=== PATIENT | female | born 1995 | race Caucasian/White ===

== ENCOUNTER → 2018-03-06 | Outpatient (CLI) | payer BC | END | disposition home or self-care (01) | LOC: RAD 12:45 | PROVIDERS: ATTEND Orthopaedic Surgery | DX: S92.011A Displaced fracture of body of right calcaneus, initial encounter for closed fracture (principal); S82.831A Other fracture of upper and lower end of right fibula, initial encounter for closed fracture; S92.211A Displaced fracture of cuboid bone of right foot, initial encounter for closed fracture; S92.251A Displaced fracture of navicular [scaphoid] of right foot, initial encounter for closed fracture; X58.XXXA Exposure to other specified factors, initial encounter; Y93.89 Activity, other specified; Y92.89 Other specified places as the place of occurrence of the external cause; Y99.8 Other external cause status ==

== ENCOUNTER 2019-01-09 11:35 | Day surgery (SDC) | payer BC ==
[~2019-01-09] VITALS: Ht 177.8 cm; Wt 76.6 kg
[~2019-01-09 11:35] MED LIST: ACET650S21 PO
[2019-01-09] MEDS ORDERED: PROPOFOL 50 ML ONE ×2 (12:06→13:32)
[2019-01-09] MEDS ORDERED: FENTANYL PF 250 MCG/5ML ONE (12:06)
[2019-01-09] MEDS ORDERED: MIDAZOLAM 1 MG/ML, 2ML ONE (12:06)
[2019-01-09] MEDS ORDERED: BUPIVACAINE/PF 0.5% ONE (12:09)
[2019-01-09 12:11] VITALS: BP 105/71
[2019-01-09] MEDS ORDERED: LACTATED RINGERS 1,000 ML IV SCH (12:14)
[2019-01-09] MEDS ORDERED: DIAZEPAM 5 MG TABLET PO ONE (12:30)
[2019-01-09] MEDS ORDERED: ACETAMINOPHEN 500 MG TABLET PO ONE (12:30)
[2019-01-09] MEDS ORDERED: GABAPENTIN 300 MG CAPSULE PO ONE (12:30)
[2019-01-09] MEDS ORDERED: TOBRAMYCIN SULFATE 1.2 GM IMP ONE ×2 (12:33→13:25)
[2019-01-09 12:36] LABS: HCG UR SG 1.011 (1.003-1.030)
[2019-01-09] MEDS ORDERED: VANCOMYCIN 1,000 MG ONE (13:25)
[2019-01-09] MEDS ORDERED: PROMETHAZINE 25 MG/ML, 1ML IV PRN (13:30)
[2019-01-09] MEDS ORDERED: OXYcodone 5 MG/5 ML ORAL.SOL UDC PO PRN (13:30)
[2019-01-09] MEDS ORDERED: HYDROmorphone 2 MG/ML, 1ML IVPush PRN (13:30)
[2019-01-09] MEDS ORDERED: MIDAZOLAM 1 MG/ML, 2ML IV PRN (13:30)
[2019-01-09] MEDS ORDERED: MEPERIDINE/PF 25MG/0.5ML IVPush PRN (13:30)
[2019-01-09] MEDS ORDERED: DIAZEPAM 5 MG/ML, 2ML IVPush PRN (13:30)
[2019-01-09] MEDS ORDERED: SCOPOLAMINE PATCH, 1.5MG PATCH.TD72 TD PRN (13:30)
[2019-01-09] MEDS ORDERED: ONDANSETRON 2MG/ML, 2ML IV PRN (13:30)
[2019-01-09] MEDS ORDERED: FENTANYL PF 100 MCG/2ML IV PRN (13:30)
[2019-01-09] MEDS ORDERED: CEFAZOLIN 1,000 MG ONE (15:48)
[2019-01-09] MEDS ORDERED: ONDANSETRON 2MG/ML, 2ML ONE (15:48)
[2019-01-09] MEDS ORDERED: DEXAMETHASONE 4 MG/ML, 1ML ONE (15:48)
== END 2019-01-09 16:00 | disposition home or self-care (01) ==
LOC: OUT 11:35
PROVIDERS: ATTEND Orthopaedic Surgery
DX: M86.8X6 Other osteomyelitis, lower leg (principal); M20.5X1 Other deformities of toe(s) (acquired), right foot; J45.909 Unspecified asthma, uncomplicated; Z87.891 Personal history of nicotine dependence
CPT/HCPCS: 27640; 28010; 28120; 64445; 64447; 81025; 87070; 87075; 87205; 88305; 88311; C1713; J0690; J1100; J2250; J2405; J2704; J3010; J3260; J3370; J3490

== ENCOUNTER 2019-02-22 13:26 | Observation (INO) | payer BC ==
[~2019-02-22] VITALS: Ht 177.8 cm; Wt 83.0 kg
[~2019-02-22 13:26] MED LIST changes: +None per pt
[2019-02-22] MEDS ORDERED: LACTATED RINGERS 1,000 ML IV SCH (13:54)
[2019-02-22 14:10] LABS: HCG UR SG 1.003 (1.003-1.030)
[2019-02-22] MEDS ORDERED: MIDAZOLAM 1 MG/ML, 2ML ONE (14:18)
[2019-02-22] MEDS ORDERED: FENTANYL PF 250 MCG/5ML ONE (14:18)
[2019-02-22] MEDS ORDERED: PROPOFOL 10 MG/ML, 20ML ONE (14:19)
[2019-02-22] MEDS ORDERED: LIDOCAINE-MPF 2% ,5ML ONE (14:19)
[2019-02-22 14:20] VITALS: BP 106/72
[2019-02-22] MEDS ORDERED: WATER-INJECTION,STERILE 10 ML IV ONE (14:20)
[2019-02-22] MEDS ORDERED: CEFAZOLIN 1,000 MG ONE ×2 (14:20)
[2019-02-22] MEDS ORDERED: ONDANSETRON 2MG/ML, 2ML ONE ×2 (14:24)
[2019-02-22] MEDS ORDERED: DEXAMETHASONE 4 MG/ML, 1ML ONE ×2 (14:24)
[2019-02-22] MEDS ORDERED: GABAPENTIN 300 MG CAPSULE PO ONE (14:30)
[2019-02-22] MEDS ORDERED: ACETAMINOPHEN 500 MG TABLET PO ONE (14:30)
[2019-02-22] MEDS ORDERED: SCOPOLAMINE PATCH, 1.5MG PATCH.TD72 TD ONE (14:30)
[2019-02-22] MEDS ORDERED: ROPIvacaine/PF 0.2%, 100ML 550 ML (check volume) INJ ONE (16:30)
[2019-02-22] MEDS ORDERED: PROPOFOL 50 ML ONE (17:34)
[2019-02-22] MEDS ORDERED: HYDROmorphone 2 MG/ML, 1ML ONE (19:43)
[2019-02-22] MEDS ORDERED: OXYcodone 5 MG/5 ML ORAL.SOL UDC ONE (19:45)
[2019-02-22] MEDS ORDERED: OXYcodone 5 MG/5 ML ORAL.SOL UDC PO PRN (20:00)
[2019-02-22] MEDS ORDERED: METHOCARBAMOL 1000MG/10 ML IV PRN (20:00)
[2019-02-22] MEDS ORDERED: HALOPERIDOL 5 MG/ML IV PRN (20:00)
[2019-02-22] MEDS ORDERED: METHOCARBAMOL 1,000 MG in DEXTROSE 5% 100 ML IV ONE (20:00)
[2019-02-22] MEDS ORDERED: MEPERIDINE/PF 25MG/0.5ML IVPush PRN (20:00)
[2019-02-22] MEDS ORDERED: PROMETHAZINE 25 MG/ML, 1ML IV PRN (20:00)
[2019-02-22] MEDS ORDERED: FENTANYL PF 100 MCG/2ML IV PRN (20:00)
[2019-02-22] MEDS ORDERED: HYDROmorphone 2 MG/ML, 1ML IVPush PRN (20:00)
[2019-02-22] MEDS ORDERED: morphine SULFATE 10 MG/ML, 1ML IV PRN (22:00)
[2019-02-22] MEDS ORDERED: PROMETHAZINE 25 MG/ML, 1ML IM PRN (22:00)
[2019-02-22] MEDS ORDERED: ONDANSETRON 2MG/ML, 2ML IV PRN (22:00)
[2019-02-22] MEDS ORDERED: OXYcodone IR 5MG TABLET PO PRN (22:00)
[2019-02-22] MEDS ORDERED: ACETAMINOPHEN 325 MG TABLET PO PRN (22:00)
[2019-02-22] MEDS ORDERED: GABAPENTIN 300 MG CAPSULE PO PRN (22:00)
[2019-02-22] MEDS: LACTATED RINGERS 1,000 ML IV SCH (23:16)
[2019-02-23 00:12] VITALS: BP 91/47
[2019-02-23 04:05] VITALS: BP 95/60
[2019-02-23] MEDS ORDERED: DAPTOMYCIN 500 MG in SODIUM CHLORIDE 0.9% 100 ML IVPB SCH (07:30)
[2019-02-23 08:18] VITALS: BP 93/57
[2019-02-23] MEDS ORDERED: ASPIRIN 81 MG TABLET EC PO SCH (09:00)
[2019-02-23] MEDS: LACTATED RINGERS 1,000 ML IV SCH (10:54)
[2019-02-23 11:08] VITALS: BP 87/49
== END 2019-02-23 12:30 | disposition home or self-care (01) ==
LOC: OR 13:26 → 4NOR 21:35 → OR 22:14 → 4NOR 22:15 → DCLOUNGE 02-23 12:15
PROVIDERS: ADMIT Orthopaedic Surgery; ATTEND Orthopaedic Surgery
DX: S82.302K Unspecified fracture of lower end of left tibia, subsequent encounter for closed fracture with nonunion (principal); Z87.891 Personal history of nicotine dependence
CPT/HCPCS: 27724; 28725; 73600; 76000; 81025; 87070; 87075; 87102; 87116; 87205; 87206; 96365; 97161; C1713; C1762; C1769; G0378; J0690; J0878; J1100; J1170; J2250; J2405; J2704; J2795; J2800; J3010; J3490; J7120

== ENCOUNTER 2019-05-24 12:30 | Day surgery (SDC) | payer BC ==
[~2019-05-24] VITALS: Ht 177.8 cm; Wt 75.0 kg
[2019-05-24 13:33] VITALS: BP 105/68
== END 2019-05-24 17:55 | disposition home or self-care (01) ==
LOC: OUT 12:30
PROVIDERS: ATTEND Orthopaedic Surgery
DX: S82.121D Displaced fracture of lateral condyle of right tibia, subsequent encounter for closed fracture with routine healing (principal); M25.771 Osteophyte, right ankle; Z79.899 Other long term (current) drug therapy; Z87.891 Personal history of nicotine dependence; X58.XXXD Exposure to other specified factors, subsequent encounter
CPT/HCPCS: 20694; 27635; 81025; J0690; J1100; J2250; J2405; J2704; J3010; J7120